=== PATIENT | female | born 1945 | race Caucasian/White ===

== ENCOUNTER 2016-06-17 11:06 | Emergency (ER) | payer OTHER ==
--- NOTE | 2016-06-17 11:21 | EDPHY ---
H & P Time Seen by Provider: 06/17/16 11:09 HPI/ROS: CHIEF COMPLAINT: Fall, hip and low back pain HISTORY OF PRESENT ILLNESS: 71-year-old female presents to the emergency department with her by private vehicle after she had a mechanical fall just prior to arrival. Patient was walking the dog and the dog pulled and she fell hitting the back of her head and injuring her lower back and buttock area. She did not lose consciousness. She denies a headache currently. No visual changes. No neck pain. No chest pain or difficulty breathing. She denies paresthesias in her upper or lower extremities. Denies abdominal pain. She has pain in her lower back and buttock area. She denies feelings of weakness in her lower extremities. REVIEW OF SYSTEMS: Constitutional: No fever, no chills. Eyes: No double or blurry vision. ENT: No sore throat. Respiratory: No cough, no shortness of breath. Cardiac: No chest pain. Gastrointestinal: No abdominal pain, vomiting or diarrhea. Genitourinary: No dysuria. Musculoskeletal: Low back pain as above. No neck pain. Skin: No rashes. Neurological: No headache. Past Medical/Surgical History: Hypothyroidism, early osteoporosis Social History: Smoking Status: Never smoked Physical Exam: General Appearance: Alert, no distress. No physical signs of trauma to her head. She is mentating normally and answering questions appropriately. No palpable hematoma or lump to the back of her head where she hit. No abrasion or signs of trauma. Eyes: Pupils equal and round. Extraocular motions are all intact. ENT: Mouth: Mucous membranes moist. No dental injury or malocclusion. No hemotympanum. Respiratory: No wheezing, rhonchi, or rales, lungs are clear to auscultation. Cardiovascular: Regular rate and rhythm. Gastrointestinal: Abdomen is soft and nontender, no masses, no rebound or guarding, bowel sounds normal. Neurological: Alert and oriented x 3, cranial nerves II through XII grossly intact Skin: Warm and dry, no rashes. Musculoskeletal: Nontender to palpate along the cervical, thoracic or lumbar spine. Neck is supple. Mild pain with palpation in the sacral spine area and overlying the posterior pelvis. Extremities: Full range of motion and no peripheral edema. Straight leg raise negative bilaterally. Psychiatric: Patient is oriented X 3, there is no agitation. Constitutional: Initial Vital Signs Temperature (C) 36.7 C 06/17/16 11:16 Heart Rate 72 06/17/16 11:16 Respiratory Rate 16 06/17/16 11:16 Blood Pressure 134/71 H 06/17/16 11:16 O2 Sat (%) 96 06/17/16 11:16 O2 Delivery Mode Room Air Allergies/Adverse Reactions: aloe vera [From Benzo-Creme] Allergy (Verified 06/14/12 15:50) benzocaine [From Benzo-Creme] Allergy (Verified 06/14/12 15:50) ergocalciferol (vitamin D2) [From Benzo-Creme] Allergy (Verified 06/14/12 15:50) vitamin A [From Benzo-Creme] Allergy (Verified 06/14/12 15:50) vitamin E [From Benzo-Creme] Allergy (Verified 06/14/12 15:50) Home Medications: Medication Instructions Recorded Levothyroxine [Synthroid 50 mcg 50 mcg PO DAILY06 04/28/12 (RX)] ONDANSETRON HCL [zofran 4mg] 4 mg PO Q6-8PRN PRN #6 tab 06/14/12 Valium 06/14/12 oxyCODONE/APAP 5/325 [Percocet 1 - 2 tab PO Q4-6PRN PRN #15 tab 06/17/16 5/325] Medical Decision Making - Diagnostics Imaging: Lumbar spine x-ray reveals compression deformity of L3. This is reviewed by myself the PAC system. Radiology interpretation agrees. X-rays of the pelvis and sacral spine are within normal limits. This is reviewed by myself the PAC system. Radiology interpretation to follow. CT imaging of the lumbar spine neck including the sacral spine reveals an old compression deformity of T12 and new compression deformity of L3 that is 30-40% compressed. This is reported to me by Dr. Quirino Caraballo. ED Course/Re-evaluation: 71-year-old female presents to the emergency department feeling pain in her lower back after mechanical fall. Initial x-rays of the lumbar spine revealed compression deformity of L3. CT scan of the lumbar spine was ordered which confirms acute compression deformity of 30-40% to L3. I spoke with the on-call neurosurgeon, and the patient was fitted for a Brewer brace by the [employer] risk control representative. She will have close follow-up with neurosurgeon. Patient was instructed to return if she developed numbness or tingling or feelings of weakness in lower legs, or any other concerns. Differential Diagnosis: Back pain including but not limited to muscular pain, herniated disc, spine fracture, intra-abdominal causes and urinary tract infection. - Data Points Medications Given: Discontinued Medications Ibuprofen (Motrin) 600 mg PO EDNOW ONE Stop: 06/17/16 12:15 Last Admin: 06/17/16 12:18 Dose: 600 mg Departure - Departure Disposition: Home, Routine, Self-Care Clinical Impression: Compression fracture Condition: Good Instructions: Vertebral Compression Fracture (ED) Additional Instructions: Ibuprofen 600 mg every 8 hours as needed for pain. Percocet for severe pain as directed. Brewer brace as discussed. Follow up with neurosurgery this week to recheck. Return to the emergency department if you developed numbness or tingling or feelings of weakness in your lower legs, increasing pain in your back, or if you feel worse in any way. Referrals: Cristóbal Thompson MD [Primary Care Provider] - As per Instructions Cam Leslie MD [Medical Doctor] - 2-3 days without fail (Neurosurgeon on- call) Prescriptions: oxyCODONE/APAP 5/325 [Percocet 5/325] 1 - 2 tab PO Q4-6PRN PRN #15 tab PRN Reason: For Moderate To Severe Pain
[2016-06-17] MEDS ORDERED: IBUPROFEN 600 MG TAB PO ONE (12:14)
[2016-06-17 15:08] VITALS: PULSE 70
[2016-06-17 15:23] VITALS: BP 128/79; RESP 14; TEMP 97.5; O2SAT 94
== END 2016-06-17 15:22 | disposition home or self-care (01) ==
DX: S32.030A Wedge compression fracture of third lumbar vertebra, initial encounter for closed fracture (principal); W18.00XA Striking against unspecified object with subsequent fall, initial encounter; Y93.01 Activity, walking, marching and hiking

== ENCOUNTER → 2016-07-18 | Outpatient (CLI) | payer OTHER | LOC: FIMAGING 09:45 | PROVIDERS: ATTEND Neurological Surgery | DX: S32.030D Wedge compression fracture of third lumbar vertebra, subsequent encounter for fracture with routine healing (principal) ==

== ENCOUNTER → 2016-08-16 | Outpatient (CLI) | payer OTHER | LOC: FIMAGING 10:48 | PROVIDERS: ATTEND Neurological Surgery | DX: S32.030A Wedge compression fracture of third lumbar vertebra, initial encounter for closed fracture (principal); M51.36 Other intervertebral disc degeneration, lumbar region ==

== ENCOUNTER → 2016-10-24 | Outpatient (CLI) | payer OTHER | LOC: FIMAGING 13:09 | PROVIDERS: ATTEND Internal Medicine | DX: Z12.31 Encounter for screening mammogram for malignant neoplasm of breast (principal) | CPT/HCPCS: G0202 ==

== ENCOUNTER → 2016-11-08 | Outpatient (CLI) | payer OTHER | LOC: FIMAGING 07:50 | PROVIDERS: ATTEND Neurological Surgery | DX: S32.030D Wedge compression fracture of third lumbar vertebra, subsequent encounter for fracture with routine healing (principal); M51.36 Other intervertebral disc degeneration, lumbar region; M48.06 Spinal stenosis, lumbar region ==

== ENCOUNTER → 2016-12-28 | Outpatient (CLI) | payer OTHER | LOC: FIMAGING 12:12 | PROVIDERS: ATTEND Physician Assistant | DX: S73.191A Other sprain of right hip, initial encounter (principal); M51.36 Other intervertebral disc degeneration, lumbar region ==

== ENCOUNTER → 2017-03-27 | Outpatient (CLI) | payer OTHER | LOC: BHFA 10:45 | PROVIDERS: ATTEND Internal Medicine Cardiovascular Disease | DX: I05.9 Rheumatic mitral valve disease, unspecified (principal) ==

== ENCOUNTER → 2017-04-01 | Outpatient (CLI) | payer OTHER | LOC: BHFA 10:30 | PROVIDERS: ATTEND Internal Medicine Interventional Cardiology | DX: R94.31 Abnormal electrocardiogram [ECG] [EKG] (principal) ==

== ENCOUNTER → 2017-04-25 | Outpatient (CLI) | payer OTHER | LOC: BHFA 09:00 | PROVIDERS: ATTEND Internal Medicine Interventional Cardiology | DX: I34.0 Nonrheumatic mitral (valve) insufficiency (principal); I34.1 Nonrheumatic mitral (valve) prolapse; I47.1 Supraventricular tachycardia ==

== ENCOUNTER → 2017-07-22 | Outpatient (CLI) | payer OTHER | LOC: BHFA 11:00 | PROVIDERS: ATTEND Internal Medicine | DX: R55 Syncope and collapse (principal); R00.2 Palpitations ==

== ENCOUNTER 2018-02-10 07:34 | Day surgery (SDC) | payer OTHER ==
[2018-02-10] MEDS ORDERED: LIDOCAINE 1% 300 MG/30 ML SDV SC ONE (07:40)
--- NOTE | 2018-02-10 08:51 | PDHPUP ---
History & Physical Update H&P update statement: This history and physical update is based on an assessment of the patient which was completed after admission or registration (within 24 hours), but prior to the surgery/procedure. H&P update: H&P reviewed & patient examined, no change in patient's condition since H&P completed, changes noted
--- NOTE | 2018-02-10 09:04 | PDCTREPORT ---
Cardiothoracic Procedure Rpt Cardiothoracic Procedure Report: Procedure: Implantation of a loop recorder. After obtaining informed consent patient was brought to the [facility] in a fasting state. The left tuan pectoral region was sterilely prepped and draped. Was infiltrated 2% xylocaine. Stab wound was made. A [employer] loop recorder was inserted under the skin using the device. 3 dhara were used to close the incision. For details please see the computer report. Conclusion successful implantation of a [employer] loop recorder.
== END 2018-02-10 10:00 | disposition home or self-care (01) ==
LOC: FCATH 07:34
PROVIDERS: ATTEND Internal Medicine Interventional Cardiology
PROC: 0JH60PZ Insertion of Cardiac Rhythm Related Device into Chest Subcutaneous Tissue and Fascia, Open Approach (ICD-10-PCS; principal; 2018-02-10)
DX: I48.92 Unspecified atrial flutter (principal); I49.1 Atrial premature depolarization; R55 Syncope and collapse
CPT/HCPCS: C1764